=== PATIENT | female | born 1995 | race Caucasian/White ===

== ENCOUNTER 2019-02-17 09:04 | Day surgery (SDC) | payer MEDICAID ==
[2019-02-15 12:08] LABS: CLARITY,URINE CLEAR (Clear); COLOR,URINE YELLOW (Yellow); GLUCOSE, URINE NEGATIVE (Neg); KETONES,URINE NEGATIVE (Neg); LEUKOCYTE ESTERASE ,URINE MODERATE (Neg); NITRITES, URINE NEGATIVE (Neg); OCCULT BLOOD,URINE SMALL (Neg); PROTEIN,URINE NEGATIVE (Neg); UA COLLECTION TYPE CLN CATCH MIDSTREAM; UROBILINOGEN,URINE 0.2 E.U/dL (0.2-1.0)
[2019-02-15 12:14] LABS: BASOPHILS % (AUTO) 0.4 % (0-1); EOSINOPHILS # (AUTO) 0.2 X10'3 (0-0.9); EOSINOPHILS % (AUTO) 2.5 % (0-6); LYMPHOCYTES # (AUTO) 2.4 X10'3 (1.1-4.8); MEAN CORPUSCULAR HEMOGLOBIN 27.1 PG (27.0-31.0); MEAN CORPUSCULAR HGB CONC 32.6 g/dL (33.0-36.5); MEAN CORPUSCULAR VOLUME 83.2 FL (78-98); MEAN PLATELET VOLUME 10.5 FL (7.4-10.4); MONOCYTES # (AUTO) 0.8 X10'3 (0-0.9); NEUTROPHILS # (AUTO) 4.8 X10'3 (1.8-7.7); NEUTROPHILS % (AUTO) 58.1 % (42-75); PRE OP HEMATOCRIT 36.9 % (35.0-45.0); PRE OP PLATELET COUNT 271 X10'3 (140-440); RED BLOOD COUNT 4.43 X10'6 (4.20-5.60); RED CELL DISTRIBUTION WIDTH 15.3 % (11.5-14.5)
[2019-02-15 12:20] LABS: ALBUMIN 3.7 G/DL (3.4-5.0); ALKALINE PHOSPHATASE 120 IU/L (46-116); BLOOD UREA NITROGEN 18 MG/DL (7-18); BUN/CREATININE RATIO 20.2 (6.6-38.0); CALCIUM 9.4 MG/DL (8.5-10.1); CHLORIDE 105 MMOL/L (99-107); CREATININE 0.89 MG/DL (0.40-0.90); PRE OP ALT 20 U/L (30-65); PRE OP ANION GAP 7 (8-16); PRE OP AST 16 U/L (10-37); PRE OP BILIRUB, TOTAL 0.3 MG/DL (0.0-1.0); PRE OP GLUCOSE 77 MG/DL (70-104); PRE OP POTASSIUM 3.9 MMOL/L (3.4-5.1); PRE OP SODIUM 141 MMOL/L (135-145); SQUAMOUS EPITHELIAL CELL,UR MODERATE /LPF (FEW); TOTAL CARBON DIOXIDE 29.2 MMOL/L (24-32); TOTAL PROTEIN 7.4 G/DL (6.4-8.2); eGFR 77 ML/MIN
[2019-02-15 12:21] LABS: MUCUS STRANDS FEW /LPF (Neg)
[2019-02-15 12:24] LABS: BACTERIA,URINE FEW /HPF (Neg)
[2019-02-15 12:34] LABS: HCG SERUM QL NEGATIVE
[2019-02-17] VITALS (9 sets, daily range): BP systolic 109–159; BP diastolic 9–101
[~2019-02-17] VITALS: Ht 162.6 cm; Wt 89.7 kg
[~2019-02-17 09:04] MED LIST: BUPR150T6 PO; cefotetan 2gm/isosm dext IVPB 50 ML IV ONE; famotidine 20mg tablet PO ONE; ringers solution, lacted 1,000 ML IV SCH
[2019-02-17] MEDS ORDERED: BUPIVAcaine/PF 2.5mg/ml (0.25%) 10ml vial ONE (10:32)
[2019-02-17] MEDS ORDERED: fentaNYL/PF 50MCG/1 ML 2ML syringe ONE (10:52)
[2019-02-17] MEDS ORDERED: propofol inj 20 ML IV ONE (10:54)
[2019-02-17] MEDS ORDERED: LIDOcaine 1%/PF 5ML 10 MG/ML VIAL ONE (10:54)
[2019-02-17] MEDS ORDERED: midazolam 2 mg/2 ml injection ONE (10:54)
[2019-02-17] MEDS ORDERED: ondansetron/PF 4mg/2ml inj ONE (11:08)
[2019-02-17] MEDS ORDERED: ketorolac trometh. 30mg/ml inj. ONE (11:09)
[2019-02-17] MEDS ORDERED: dexamethasone sod phosphate 4mg/ml inj. ONE (11:10)
[2019-02-17] MEDS ORDERED: ringers solution, lacted 1,000 ML IV SCH (11:14)
[2019-02-17] MEDS ORDERED: proCHLORperazine 10 MG/2 ml inj IV PRN (11:15)
[2019-02-17] MEDS ORDERED: morphine 4 MG/ML inj SYRINge IV PRN ×2 (11:15)
[2019-02-17] MEDS ORDERED: ondansetron/PF 4mg/2ml inj IV PRN (11:15)
[2019-02-17] MEDS ORDERED: meperidine/PF 25mg/ml syringe IV PRN ×2 (11:15)
--- NOTE | 2019-02-17 11:46 | NUR ---
Received from OR via , accompanied by Anesthesiologist DR GOFF and report given by Anesthesiolgist. AWAKENS TO VOICE. VITALS STABLE. DRESSINGS DI. IRMA PAIN. ABD SOFT.
[2019-02-17] MEDS: meperidine/PF 25mg/ml syringe IV PRN ×2 (12:25→12:39)
[2019-02-17] MEDS ORDERED: HYDROcodone/acetaminophen 5mg/325mg tablet PO PRN ×2 (12:45)
--- NOTE | 2019-02-17 12:56 | NUR ---
Report called to receiving nurse. Transferred via GURNEY Belongings . Special Issues communicated to receiving nurse. AWAKE AND ORIENTED. VITALS STABLE. DRESSINGS DI. STATES PAIN IMPROVING. TO PAS RM [id number] AT THIS TIME.
--- NOTE | 2019-02-17 14:14 | NUR ---
PATIENT DISCHARGE CRITERIA MET, DISCHARGE INSTRUCTIONS GIVEN, PATIENT VERBALIZED UNDERSTANDING. PIV DC'D, CATH TIP INTACT, PATIENT TRANSPORTED TO PERSONAL VEHICLE WITH ALL PERSONAL BELONGINGS ACCOMPANIED BT STAFF AND FAMILY.
== END 2019-02-17 14:00 | disposition home or self-care (01) ==
LOC: PAS 09:04
PROVIDERS: ATTEND Obstetrics & Gynecology Obstetrics
DX: Z30.2 Encounter for sterilization (principal); Z98.890 Other specified postprocedural states; Z79.899 Other long term (current) drug therapy; Z88.8 Allergy status to other drugs, medicaments and biological substances
CPT/HCPCS: 36415; 58671; 80053; 81001; 84703; 85025; 86885; 86900; 86901; 87088; A4264; J1100; J1885; J2001; J2175; J2250; J2405; J2704; J3010; J3490; A7000; J7120

== ENCOUNTER 2024-12-09 09:36 | Outpatient (CLI) | payer MEDICAID ==
[~2024-12-09 09:36] MED LIST changes: +BUPR-561 PO; -BUPR150T6 PO; -cefotetan 2gm/isosm dext IVPB 50 ML IV ONE; -famotidine 20mg tablet PO ONE; -ringers solution, lacted 1,000 ML IV SCH
== END 2024-12-09 23:59 | disposition home or self-care (01) ==
LOC: RAD 09:36
PROVIDERS: ATTEND Family Medicine
DX: N92.6 Irregular menstruation, unspecified (principal)
CPT/HCPCS: 76830; 76856; 93976